=== PATIENT | male | born 1935 | race Caucasian/White ===

== ENCOUNTER 2019-03-02 11:30 | Outpatient (CLI) | payer MEDICARE ==
--- NOTE | 2019-03-02 11:51 | RAD ---
XR Chest Pa Lat STANDARD History: Cough Comparison: None. Findings: Lungs are clear. No pneumothorax or effusion. Cardiac silhouette and mediastinal contours a re within normal limits. No acute osseous abnormality. Impression: No acute intrathoracic abnormality.
== END 2019-03-02 11:31 | disposition home or self-care (01) ==
LOC: MADRAD 11:30
PROVIDERS: ATTEND Physician Assistant
DX: R05 Cough (principal)
CPT/HCPCS: 71046

== ENCOUNTER 2021-02-04 09:39 | Emergency (ER) | payer MEDICARE ==
[~2021-02-04 09:39] MED LIST: Sodium Chloride 0.9% 1,000 ML BAG ONE; Sodium Chloride 0.9% 100 ML BAG ONE
[2021-02-04] MEDS ORDERED: Acetaminophen 325 MG TAB ONE (10:11)
[2021-02-04] MEDS ORDERED: Cefepime 2 GM VIAL ONE (10:16)
[2021-02-04] MEDS ORDERED: Morphine 10 MG/ML VIAL ONE ×2 (10:16→13:52)
[2021-02-04] MEDS ORDERED: Ondansetron PF 4 MG/2 ML Vial ONE (10:28)
[2021-02-04 10:32] LABS: ALT (SGPT) 10 U/L (8-55); AST (SGOT) 18 U/L (5-34); Albumin 3.8 g/dL (3.4-4.8); Alkaline Phosphatase 60 U/L (40-110); Anion Gap 16 mmol/L (10-20); BUN (Urea Nitrogen) 20 mg/dL (8.4-25.7); Bilirubin, Total 2.7 mg/dL (0.2-1.2); Calc. Creatinine Clearance 0 mL/min (70-130); Calcium 9.4 mg/dL (7.8-10.44); Carbon Dioxide 27 mmol/L (23-31); Chloride 99 mmol/L (98-107); Globulin 3.2 g/dL (2.4-3.5); Glucose 197 mg/dL (83-110); Potassium 3.5 mmol/L (3.5-5.1); Sodium 138 mmol/L (136-145)
[2021-02-04 10:37] LABS: Band 3 % (5-11); Eosinophils 1 % (0-10); Hemoglobin 15.3 g/dL (14.0-18.0); Lymphocytes 2 % (21-51); MDiff Complete? YES; Mean Corpuscular HGB CONC 33.1 g/dL (32.0-36.0); Mean Corpuscular Hemoglobin 31.5 pg (27.0-31.0); Mean Corpuscular Volume 95.3 fL (78.0-98.0); Monocytes 2 % (0-10); Myelocyte 1 % (0-0); Neutrophil 89 % (42-75); Platelet Count 251 thou/uL (130-400); Platelet Morphology Comment Appears Adequate; RBC Distribution Width 12.5 % (11.5-14.5); RBC Morphology Normal; Reactive Lymphocytes 2 % (0-10); Red Blood Cell (RBC) Count 4.85 mill/uL (4.70-6.10); Toxic Granulation SLIGHT
[2021-02-04 10:51] LABS: CKMB 0.4 ng/mL (0-6.6)
[2021-02-04] MEDS ORDERED: Iopamidol 370 76% 100 ML VIAL ONE (11:50)
[2021-02-04] MEDS ORDERED: metroNIDAZOLE 500 MG/100 ML BAG ONE (12:18)
[2021-02-04] MEDS ORDERED: Aspirin Chewable 81 MG TAB ONE (12:31)
[2021-02-04 13:18] LABS: SARS-CoV-2 NAA Rapid Test Not Detected (NotDetected)
== END 2021-02-04 14:18 | disposition short-term general hospital (02) ==
LOC: MADERS 09:39
DX: A41.9 Sepsis, unspecified organism (principal); K81.0 Acute cholecystitis; Z20.822 Contact with and (suspected) exposure to COVID-19
CPT/HCPCS: 71045; 74177; 80053; 82553; 83605; 83880; 84484; 85025; 93005; 96365; 96366; 96367; 96375; 96376; J0692; J2270; J2405; J3490; J7050; Q9967; U0002

== ENCOUNTER 2021-03-02 19:49 | Emergency (ER) | payer MEDICARE ==
[2021-03-02] MEDS ORDERED: Iopamidol 370 76% 100 ML VIAL IV ONE (19:50)
[2021-03-02] MEDS ORDERED: Ondansetron PF 4 MG/2 ML Vial ONE (21:02)
[2021-03-02] MEDS ORDERED: Sodium Chloride 0.9% 500 ML ONE (21:02)
[2021-03-02 21:05] LABS: Band 3 % (5-11); Hemoglobin 12.9 g/dL (14.0-18.0); Lymphocytes 5 % (21-51); MDiff Complete? YES; Mean Corpuscular HGB CONC 33.7 g/dL (32.0-36.0); Mean Corpuscular Hemoglobin 31.1 pg (27.0-31.0); Mean Corpuscular Volume 92.3 fL (78.0-98.0); Mean Platelet Volume 7.5 fL (7.4-10.4); Monocytes 4 % (0-10); Neutrophil 88 % (42-75); Platelet Count 208 thou/uL (130-400); Platelet Morphology Comment Appears Adequate; RBC Distribution Width 12.5 % (11.5-14.5); RBC Morphology Normal; Red Blood Cell (RBC) Count 4.14 mill/uL (4.70-6.10); White Blood Cell (WBC) Count 13.3 thou/uL (4.8-10.8)
[2021-03-02 21:11] LABS: ALT (SGPT) 194 U/L (8-55); AST (SGOT) 520 U/L (5-34); Albumin 3.4 g/dL (3.4-4.8); Alkaline Phosphatase 292 U/L (40-110); Anion Gap 16 mmol/L (10-20); BUN (Urea Nitrogen) 21 mg/dL (8.4-25.7); Bilirubin, Total 3.6 mg/dL (0.2-1.2); Calc. Creatinine Clearance 0 mL/min (70-130); Calcium 10.2 mg/dL (7.8-10.44); Carbon Dioxide 26 mmol/L (23-31); Chloride 99 mmol/L (98-107); Globulin 3.1 g/dL (2.4-3.5); Glucose 202 mg/dL (83-110); Lipase 35 U/L (8-78); Magnesium 1.4 mg/dL (1.6-2.6); Potassium 3.4 mmol/L (3.5-5.1); Protein, Total 6.5 g/dL (5.8-8.1); Sodium 138 mmol/L (136-145)
[2021-03-02] MEDS ORDERED: Magnesium 2 GM/50 ML BAG (IN WATER) ONE (21:46)
[2021-03-02] MEDS ORDERED: Piperacillin/Tazobactam 4.5 GM VIAL ONE (23:27)
[2021-03-02] MEDS ORDERED: Sodium Chloride 0.9% 100 ML ONE (23:27)
[2021-03-02 23:37] LABS: Base Excess-Venous 2.7 mmol/L (-2.0 to 3.0); Bicarbonate (HCO3v) 28.2 mmol/L (22.0-28.0); CO2 Tension (PvCO2) 45.5 mmHg (42.0-51.0); Calcium, Ionized 1.12 mmol/L (1.15-1.33); Chloride 100 mmol/L (98-107); Hemoglobin - Calc 13.9 g/dL (14.0-18.0); Potassium 3.8 mmol/L (3.5-5.1); Sodium 138 mmol/L (138-145); T. Carbon Dioxide 29.6 mmol/L (22.0-28.0)
[2021-03-03] MEDS ORDERED: Morphine 4 MG/ML VIAL ONE (01:51)
[2021-03-03] MEDS ORDERED: Potassium Chloride 20 MEQ TAB ONE (01:52)
== END 2021-03-03 02:13 | disposition short-term general hospital (02) ==
LOC: MADERS 19:49
DX: A09 Infectious gastroenteritis and colitis, unspecified (principal); A41.9 Sepsis, unspecified organism; E83.42 Hypomagnesemia; R74.01 Elevation of levels of liver transaminase levels; D72.829 Elevated white blood cell count, unspecified; R94.4 Abnormal results of kidney function studies; R00.0 Tachycardia, unspecified; I49.3 Ventricular premature depolarization; I10 Essential (primary) hypertension; E11.9 Type 2 diabetes mellitus without complications; E78.5 Hyperlipidemia, unspecified; Z79.899 Other long term (current) drug therapy
CPT/HCPCS: 71045; 74177; 80053; 82330; 82803; 83605; 83690; 83735; 83880; 84484; 85025; 87040; 87077; 87149; 87186; 93005; 96365; 96367; 96375; J2270; J2405; J2543; J3475; J3490; J7030; Q9967

== ENCOUNTER 2021-11-19 10:55 | Outpatient (CLI) | payer MEDICARE ==
[2021-11-19 11:17] LABS: Anion Gap 17 mmol/L (10-20); BUN (Urea Nitrogen) 20 mg/dL (8.4-25.7); Calc. Creatinine Clearance 0 mL/min (70-130); Calcium 10.6 mg/dL (7.8-10.44); Carbon Dioxide 30 mmol/L (23-31); Chloride 101 mmol/L (98-107); Estimated GFR 48; Glucose 179 mg/dL (83-110); Potassium 5.8 mmol/L (3.5-5.1); Sodium 142 mmol/L (136-145)
== END 2021-11-19 10:56 | disposition home or self-care (01) ==
LOC: MADLABBHPM 10:55
PROVIDERS: ATTEND Family Medicine
DX: R60.0 Localized edema (principal)
CPT/HCPCS: 80048

== ENCOUNTER 2021-11-21 11:33 | Outpatient (CLI) | payer MEDICARE ==
[2021-11-21 12:04] LABS: Anion Gap 14 mmol/L (10-20); BUN (Urea Nitrogen) 24 mg/dL (8.4-25.7); Calc. Creatinine Clearance 0 mL/min (70-130); Calcium 9.8 mg/dL (7.8-10.44); Carbon Dioxide 31 mmol/L (23-31); Chloride 101 mmol/L (98-107); Estimated GFR 52; Glucose 150 mg/dL (83-110); Potassium 5.4 mmol/L (3.5-5.1); Sodium 141 mmol/L (136-145)
== END 2021-11-21 11:34 | disposition home or self-care (01) ==
LOC: MADLABBHPM 11:33 → MADLAB 11:34
PROVIDERS: ATTEND Family Medicine
DX: E87.5 Hyperkalemia (principal)
CPT/HCPCS: 80048

== ENCOUNTER 2022-03-20 12:29 | Outpatient (CLI) | payer MEDICARE ==
[2022-03-20 13:20] LABS: ALT (SGPT) 8 U/L (8-55); AST (SGOT) 12 U/L (5-34); Albumin 3.7 g/dL (3.4-4.8); Alkaline Phosphatase 65 U/L (40-110); Anion Gap 15 mmol/L (10-20); BUN (Urea Nitrogen) 20 mg/dL (8.4-25.7); Bilirubin, Total 1.1 mg/dL (0.2-1.2); Calc. Creatinine Clearance 0 mL/min (70-130); Calcium 9.9 mg/dL (7.8-10.44); Carbon Dioxide 30 mmol/L (23-31); Chloride 102 mmol/L (98-107); Estimated GFR 53; Globulin 2.7 g/dL (2.4-3.5); Glucose 173 mg/dL (83-110); Potassium 5.7 mmol/L (3.5-5.1); Protein, Total 6.4 g/dL (5.8-8.1); Sodium 141 mmol/L (136-145)
[2022-03-20 17:10] LABS: Hemoglobin A1c 7.2 % (4.0-6.0)
== END 2022-03-20 12:30 | disposition home or self-care (01) ==
LOC: MADLABBHPM 12:29
PROVIDERS: ATTEND Family Medicine
DX: E11.9 Type 2 diabetes mellitus without complications (principal)
CPT/HCPCS: 80053; 83036

== ENCOUNTER 2024-11-11 10:13 | Outpatient (CLI) | payer MEDICARE ==
[2024-11-11 10:52] LABS: ALT (SGPT) Less than 7 U/L (Less than 45); AST (SGOT) 16 U/L (11-34); Albumin 3.5 g/dL (3.1-4.5); Alkaline Phosphatase 56 U/L (40-110); Anion Gap 18 mmol/L (10-20); BUN (Urea Nitrogen) 22 mg/dL (8.4-25.7); Bilirubin, Total 1.4 mg/dL (0.3-1.2); Calc. Creatinine Clearance 0 mL/min (70-130); Calcium 9.2 mg/dL (7.8-10.44); Carbon Dioxide 26 mmol/L (23-31); Cardiac Risk 3.1 (Less than 4.5); Chloride 100 mmol/L (98-107); Cholesterol 121 mg/dl (< 200 Desired); Globulin 3.2 g/dL (2.4-3.5); Glucose 133 mg/dL (83-110); HDL Cholesterol 39 mg/dL (>60 Neg Risk); LDL Cholesterol, Calculated 55 mg/dL; Potassium 4.6 mmol/L (3.5-5.1); Sodium 139 mmol/L (136-145); Triglycerides 135 mg/dL (Less than 150)
== END 2024-11-11 10:14 | disposition home or self-care (01) ==
LOC: MADLAB 10:13
PROVIDERS: ATTEND Family Medicine
DX: E11.618 Type 2 diabetes mellitus with other diabetic arthropathy (principal); E78.2 Mixed hyperlipidemia; I10 Essential (primary) hypertension
CPT/HCPCS: 36415; 80053; 80061; 82043; 83036